=== PATIENT | female | born 1930 | race Caucasian/White ===

== ENCOUNTER 2017-05-31 11:45 | Inpatient (IN) | payer OTHER ==
[~2017-05-31] VITALS: Ht 177.8 cm; Wt 64.4 kg
[~2017-05-31 11:45] MED LIST: ACETYLCYSTEINE30 ML HHN; BG MC; COL100 PO; COUMADIN1 MG; GLIPIZIDE2.5 M1; GLU5 PO; GLU500 PO; HAL5I IV; HUMULIN R100 U/1 M1 SC; IPRATROPIUM BROM3 M2 HHN; LEVOFLOXACIN500 M1 PO; LOT5 PO; LOTENSIN10 MG; METFORMIN ER500 M1; MOR2I IV; MUCINEX600 MG PO; NOR10T PO; PRI20 PO; SIMVASTATIN10 M1; TES100 PO; TOR15I IV; TYL325 PO; ZOC20 PO; ZOFI IV; ZOS3PM IV
[2017-05-31 14:37] LABS: CALCIUM 8.6 mg/dL (8.5-10.1); CARBON DIOXIDE 23.7 mmol/L (21-32); CHLORIDE SERUM 103 mmol/L (98-107); CREATININE SERUM 0.7 mg/dL (0.6-1.0); GLUCOSE SERUM 215 mg/dL (74-106); POTASSIUM SERUM 4.7 mmol/L (3.5-5.1); SODIUM SERUM 137 mmol/L (136-145)
[2017-05-31 14:41] LABS: ALBUMIN 3.5 g/dL (3.4-5.0); ALKALINE PHOSPHATASE 64 U/L (46-116); ALT/SGPT 17 U/L (14-59); AST/SGOT 21 U/L (15-37); BILIRUBIN TOTAL 0.81 mg/dL (0.20-1.00); TOTAL PROTEIN, SERUM 6.4 g/dL (6.4-8.2)
[2017-05-31 14:45] LABS: BASOPHIL % 0.4 % (0-2); PLATELET COUNT 368 x10^3mcL (130-400)
[2017-05-31 14:52] LABS: RED CELL DISTRIBUTION WIDTH 17.3 % (11.5-14.5)
[2017-05-31] MEDS ORDERED: SIMVASTATIN10 M1 PO (15:24)
[2017-05-31] MEDS ORDERED: METFORMIN HCL500 MG PO (15:24)
[2017-05-31] MEDS ORDERED: BENAZEPRIL HYDR20 M1 PO (15:24)
[2017-05-31] MEDS ORDERED: COU1 PO (15:25)
[2017-05-31 16:32] LABS: FREE T4 1.03 ng/dL (0.76-1.46); FREE THYROXINE INDEX 2.7 ug/dL (1.4-4.5); T3 TOTAL 0.88 ng/mL; T4(THYROXINE) 7.1 ug/dL (4.7-13.3)
[2017-05-31 16:48] LABS: MAGNESIUM 1.8 mg/dL (1.8-2.4); PHOSPHOROUS 3.9 mg/dL (2.5-4.9)
[2017-05-31 16:49] LABS: CHOLESTEROL/HDL RATIO 1.8
[2017-05-31 16:56] LABS: IRON 49 ug/dL (50-170); TOTAL IRON BINDING CAPACITY 264 ug/dL (250-450)
[2017-05-31 16:59] VITALS: BP 134/62
[2017-05-31 17:08] LABS: RED BLOOD CELLS 2.65 M/mm3 (4.10-5.10)
[2017-05-31 19:46] LABS: microscopic required? YES; urine erythrocyte 3+ (NEGATIVE)
[2017-05-31 21:13] LABS: BASOPHIL % 0.4 % (0-2); PLATELET COUNT 342 x10^3mcL (130-400)
[2017-05-31 21:14] LABS: RED CELL DISTRIBUTION WIDTH 17.8 % (11.5-14.5)
[2017-05-31 22:16] VITALS: BP 137/54
[2017-06-01 06:19] LABS: CALCIUM 8.7 mg/dL (8.5-10.1); CHLORIDE SERUM 109 mmol/L (98-107); CREATININE SERUM 0.6 mg/dL (0.6-1.0); GLUCOSE SERUM 156 mg/dL (74-106); MAGNESIUM 1.8 mg/dL (1.8-2.4); PHOSPHOROUS 3.8 mg/dL (2.5-4.9); POTASSIUM SERUM 4.2 mmol/L (3.5-5.1); SODIUM SERUM 144 mmol/L (136-145)
[2017-06-01 06:35] VITALS: BP 137/53
[2017-06-01 08:46] LABS: BASOPHIL % 0.4 % (0-2); PLATELET COUNT 362 x10^3mcL (130-400)
[2017-06-01 08:47] LABS: RED CELL DISTRIBUTION WIDTH 18.9 % (11.5-14.5)
[2017-06-01 10:09] VITALS: BP 124/42
[2017-06-01 12:55] VITALS: BP 137/59
[2017-06-01 17:49] VITALS: BP 134/56
[2017-06-01 20:08] VITALS: BP 121/49
[2017-06-01 20:53] VITALS: BP 132/52
[2017-06-02 06:00] VITALS: BP 130/51
[2017-06-02 07:08] LABS: CALCIUM 8.4 mg/dL (8.5-10.1); CARBON DIOXIDE 27.2 mmol/L (21-32); CHLORIDE SERUM 106 mmol/L (98-107); CREATININE SERUM 0.6 mg/dL (0.6-1.0); GLUCOSE SERUM 169 mg/dL (74-106); POTASSIUM SERUM 4.4 mmol/L (3.5-5.1); SODIUM SERUM 141 mmol/L (136-145)
[2017-06-02 07:09] LABS: BASOPHIL % 0.5 % (0-2); PLATELET COUNT 339 x10^3mcL (130-400)
[2017-06-02 07:12] LABS: RED CELL DISTRIBUTION WIDTH 20.7 % (11.5-14.5); rbc morphology (normal/abnorm) ABNORMAL (NORMAL)
[2017-06-02 09:58] VITALS: BP 130/46
[2017-06-02 13:24] VITALS: BP 142/62
[2017-06-02 17:07] VITALS: BP 134/61
[2017-06-02 21:40] VITALS: BP 127/45
[2017-06-03 04:31] LABS: BASOPHIL % 0.5 % (0-2); PLATELET COUNT 324 x10^3mcL (130-400)
[2017-06-03 04:34] LABS: RED CELL DISTRIBUTION WIDTH 20.8 % (11.5-14.5)
[2017-06-03 04:59] LABS: CARBON DIOXIDE 24.9 mmol/L (21-32); CHLORIDE SERUM 110 mmol/L (98-107); CREATININE SERUM 0.5 mg/dL (0.6-1.0); GLUCOSE SERUM 125 mg/dL (74-106); MAGNESIUM 1.7 mg/dL (1.8-2.4); PHOSPHOROUS 4.2 mg/dL (2.5-4.9); POTASSIUM SERUM 3.9 mmol/L (3.5-5.1); SODIUM SERUM 146 mmol/L (136-145)
[2017-06-03 05:25] LABS: rbc morphology (normal/abnorm) ABNORMAL (NORMAL)
[2017-06-03 05:26] LABS: tear drop cell (dacryocyte) 1+
[2017-06-03 08:30] VITALS: BP 134/50
[2017-06-03 13:05] VITALS: BP 149/63
[2017-06-03 16:22] VITALS: BP 149/63
[2017-06-03] MEDS ORDERED: COU1 PO (16:25)
== END 2017-06-03 19:00 | disposition home health service (06) | DRG 917 ==
LOC: ED 11:45 → DU 15:23
PROVIDERS: Emergency Medicine; ADMIT Family Medicine
DX: T45.511A Poisoning by anticoagulants, accidental (unintentional), initial encounter (principal); N17.0 Acute kidney failure with tubular necrosis; D68.69 Other thrombophilia; R23.3 Spontaneous ecchymoses; E11.65 Type 2 diabetes mellitus with hyperglycemia; D64.9 Anemia, unspecified; E86.0 Dehydration; I10 Essential (primary) hypertension; E78.5 Hyperlipidemia, unspecified; Z79.4 Long term (current) use of insulin; Z86.711 Personal history of pulmonary embolism; Z79.01 Long term (current) use of anticoagulants; Z79.84 Long term (current) use of oral hypoglycemic drugs; Z91.19 Patient's noncompliance with other medical treatment and regimen; Y92.018 Other place in single-family (private) house as the place of occurrence of the external cause; G90.8 Other disorders of autonomic nervous system
CPT/HCPCS: 82962; 83880; 84439; 97110-GP; 97116-GP; 97530-GP; J0696; J3475; J3490; J7030; Q0092

== ENCOUNTER 2018-08-07 12:28 | Inpatient (IN) | payer OTHER ==
[~2018-08-07] VITALS: Ht 177.8 cm; Wt 72.6 kg
[~2018-08-07 12:28] MED LIST changes: +BENAZEPRIL HYDR20 M1 PO; +COU1 PO; +METFORMIN HCL500 MG PO; +SIMVASTATIN10 M1 PO
[2018-08-07 12:38] VITALS: Ht 177.8 cm; Wt 72.6 kg
[2018-08-07 13:36] LABS: CALCIUM 8.9 mg/dL (8.5-10.1); CARBON DIOXIDE 24.4 mmol/L (21-32); CHLORIDE SERUM 104 mmol/L (98-107); CREATININE SERUM 0.7 mg/dL (0.6-1.0); GLUCOSE SERUM 144 mg/dL (74-106); POTASSIUM SERUM 4.4 mmol/L (3.5-5.1); SODIUM SERUM 139 mmol/L (136-145)
[2018-08-07 13:40] LABS: ALBUMIN 3.5 g/dL (3.4-5.0); ALKALINE PHOSPHATASE 102 U/L (46-116); ALT/SGPT 20 U/L (14-59); AST/SGOT 23 U/L (15-37); BILIRUBIN TOTAL 0.4 mg/dL (0.20-1.00); TOTAL PROTEIN, SERUM 6.8 g/dL (6.4-8.2)
[2018-08-07 14:21] LABS: BASOPHIL % 0.5 % (0-2); PLATELET COUNT 246 x10^3mcL (130-400); RED CELL DISTRIBUTION WIDTH 13.8 % (11.5-14.5)
[2018-08-07 16:49] VITALS: BP 159/60
[2018-08-07 17:53] VITALS: BP 159/60
[2018-08-07 20:40] VITALS: BP 176/62
[2018-08-07 21:57] LABS: UA SPECIFIC GRAVITY 1.015 (1.005-1.035); microscopic required? YES; urine erythrocyte 2+ (NEGATIVE)
[2018-08-07 22:10] VITALS: BP 167/68
[2018-08-07 22:45] VITALS: BP 173/62
[2018-08-08 00:30] VITALS: BP 141/49
[2018-08-08 01:25] VITALS: BP 140/49
[2018-08-08 03:00] VITALS: BP 146/56
[2018-08-08 05:30] VITALS: BP 140/52
[2018-08-08 06:03] LABS: BASOPHIL % 0.4 % (0-2); PLATELET COUNT 259 x10^3mcL (130-400); RED CELL DISTRIBUTION WIDTH 13.8 % (11.5-14.5)
[2018-08-08 06:20] LABS: ALBUMIN 3.8 g/dL (3.4-5.0); ALKALINE PHOSPHATASE 104 U/L (46-116); ALT/SGPT 24 U/L (14-59); AST/SGOT 27 U/L (15-37); BILIRUBIN TOTAL 0.6 mg/dL (0.20-1.00); CALCIUM 9.1 mg/dL (8.5-10.1); CARBON DIOXIDE 30.2 mmol/L (21-32); CHLORIDE SERUM 100 mmol/L (98-107); CREATININE SERUM 0.7 mg/dL (0.6-1.0); GLUCOSE SERUM 133 mg/dL (74-106); MAGNESIUM 1.6 mg/dL (1.8-2.4); PHOSPHOROUS 3.4 mg/dL (2.5-4.9); POTASSIUM SERUM 3.3 mmol/L (3.5-5.1); SODIUM SERUM 140 mmol/L (136-145); TOTAL PROTEIN, SERUM 7.4 g/dL (6.4-8.2)
[2018-08-08] MEDS ORDERED: COU1 PO (10:24)
[2018-08-08 12:05] VITALS: BP 140/52
== END 2018-08-08 14:15 | disposition home or self-care (01) | DRG 379 ==
LOC: ED 12:28 → DU 15:27
PROVIDERS: Emergency Medicine; Internal Medicine Pulmonary Disease
PROC: 30233L1 Transfusion of Nonautologous Fresh Plasma into Peripheral Vein, Percutaneous Approach (ICD-10-PCS; principal; 2018-08-07)
PROC: 30233K1 Transfusion of Nonautologous Frozen Plasma into Peripheral Vein, Percutaneous Approach (ICD-10-PCS; 2018-08-07)
DX: K92.2 Gastrointestinal hemorrhage, unspecified (principal); E11.9 Type 2 diabetes mellitus without complications; I10 Essential (primary) hypertension; T45.515A Adverse effect of anticoagulants, initial encounter; Z79.01 Long term (current) use of anticoagulants; Z86.711 Personal history of pulmonary embolism; Z79.84 Long term (current) use of oral hypoglycemic drugs; Z79.899 Other long term (current) drug therapy; Y92.89 Other specified places as the place of occurrence of the external cause
CPT/HCPCS: 82962; C9113; J1940; J7040; J7042; J7050; P9059